=== PATIENT | female | born 1940 | race Hispanic/Latino ===

== ENCOUNTER 2018-08-15 08:46 | Outpatient (CLI) | payer MEDICARE | END 2018-08-15 08:47 | disposition home or self-care (01) | LOC: RAD 08:46 | DX: M54.16 Radiculopathy, lumbar region (principal) ==

== ENCOUNTER 2018-08-27 11:06 | Day surgery (SDC) | payer MEDICARE ==
[2018-08-25 07:35] VITALS: BMI 31.3
[2018-08-27 12:45] LABS: BASO # 0.03 K/mm3 (0.0-2.0); BASO % 0.3 % (0.0-3.0); EOS # 0.3 (0.0-0.7); EOS % 2.8 % (1.5-5.0); GRAN # 5.33 (1.4-6.5); HEMOGLOBIN 11.3 g/dL (12.0-16.0); LYMPH # 2.9 (1.2-3.4); LYMPH % 32.1 % (22.0-35.0); MEAN CORPUSCULAR HEMOGLOBIN 29.5 pg (25.0-35.0); MEAN CORPUSCULAR HGB CONC 33.5 g/dl (31.0-37.0); MEAN PLATELET VOLUME 10.7 fl (7.0-11.0); MONO # 0.5 (0.1-0.6); MONO % 5.8 % (1.0-6.0); RBC 3.83 10^6/uL (3.5-6.1); RED CELL DISTRIBUTION WIDTH 13.6 % (11.5-14.5)
[2018-08-27 12:54] LABS: INR 1.22; PARTIAL THROMBOPLASTIN TIME 37.5 Seconds (26.9-38.3); PROTHROMBIN TIME 13.8 SECONDS (9.4-12.5)
[2018-08-27 12:55] LABS: BLOOD UREA NITROGEN 23 mg/dL (7-21); CALCIUM 9.8 mg/dL (8.4-10.5); GFR NON-AFRICAN AMERICAN > 60
[2018-08-27] MEDS ORDERED: Midazolam 2 MG/2 ML VIAL ONE (13:32)
[2018-08-27] MEDS ORDERED: Midazolam 2 MG/2 ML VIAL IVP ONE (14:15)
[2018-08-27] MEDS ORDERED: Oxycodone/Acetaminophen 5/325 mg Tab PO PRN (14:23)
[2018-08-27] MEDS ORDERED: Sodium Chloride 0.45% 1,000 ML IV SCH (14:30)
[2018-08-27 15:32] VITALS: BP 124/46; PULSE 72; RESP 16; TEMP 97.5; O2SAT 96
--- NOTE | 2018-08-27 19:03 | CT ---
PROCEDURE: CT guided L2 biopsy. HISTORY: L2 mass noted on MRI. Evaluate for malignancy PHYSICIAN(S): Reginald Mahoney MD. TECHNIQUE: The relative risks and indications of the procedure were explained to the patient and consent obtained. The patient was placed prone on the CT scanner and preliminary images through the lumbar spine obtained. Conscious sedation and monitoring were provided throughout the procedure by a nurse. Degenerative changes are noted lumbar spine. Involving the anterior inferior aspect of L2, there is an osteophyte with soft tissue changes. This area was targeted for biopsy.. A right posterior paraspinal approach was selected and the area prepped and draped in the usual sterile fashion. 1% Xylocaine was used to anesthetize the skin and soft tissues. A 17-gauge guiding needle was advanced into the 2 cm osteophyte soft tissue changes involving the anterior and inferior aspect of the L2 vertebral body on the right. Its position was confirmed with CT. Using coaxial technique, multiple core biopsies were obtained. The postprocedure images show no evidence of significant hemorrhage. IMPRESSION: 1. CT-guided L2 biopsy as described above.
== END 2018-08-27 16:25 | disposition home or self-care (01) ==
LOC: SDS 11:06
PROVIDERS: ATTEND Radiology Vascular & Interventional Radiology
DX: M51.36 Other intervertebral disc degeneration, lumbar region (principal); I10 Essential (primary) hypertension; E11.9 Type 2 diabetes mellitus without complications; Z79.4 Long term (current) use of insulin
CPT/HCPCS: 20225; 36415; 77012; 80048; 85025; 85610; 85730; 88305; J2250; J2405; J3010; J7030

== ENCOUNTER 2018-12-05 15:31 | Emergency (ER) | payer MEDICARE ==
[2018-12-05 15:45] VITALS: BMI 33.5
[2018-12-05 15:56] VITALS: RESP 18
--- NOTE | 2018-12-05 16:20 | ED PDOC ---
Arrival/HPI - General Chief Complaint: Chest Pain Historian: Patient - History of Present Illness Narrative History of Present Illness (Text): 12/05/18 16:20 A 78 year old female who presents to the ED complaining of a gradual onset of lower chest and upper back pain that comes and goes. Patient reports associated chills but denies pain when taking deep breaths, nausea and abdominal pain. Patient notes pain is worse with specific movements but denies any injuries. Time/Duration: Other (Last night) Symptom Onset: Gradual Symptom Course: Unchanged Activities at Onset: Light Context: Home Past Medical History - Provider Review Nursing Documentation Reviewed: Yes - Cardiac Hx Pacemaker: No - Neurological Hx Paralysis: No - Endocrine/Metabolic Hx Diabetes Mellitus Type 1: Yes - Hematological/Oncological Hx Blood Transfusions: No - Musculoskeletal/Rheumatological Hx Musculoskeletal Disorders: Yes Hx Arthritis: Yes - Psychiatric Hx Emotional Abuse: No Hx Physical Abuse: No Hx Substance Use: No - Surgical History Other/Comment: Rt knee sx - Anesthesia Hx Anesthesia Reactions: No Hx Malignant Hyperthermia: No - Suicidal Assessment Feels Threatened In Home Enviroment: No Family/Social History - Physician Review Nursing Documentation Reviewed: Yes Family/Social History: Unknown Family HX Smoking Status: Never Smoked Hx Alcohol Use: No Hx Substance Use: No Allergies/Home Meds Allergies/Adverse Reactions: Allergies No Known Allergies Allergy (Verified 12/05/18 15:44) Home Medications: Home Meds Medication Instructions Recorded Confirmed MetFORMIN [glucoPHAGE] 1,000 mg PO BID 12/12/15 08/27/18 Simvastatin 20 mg PO DAILY 12/12/15 08/27/18 Aspirin [Ecotrin] 81 mg PO DAILY 08/25/18 08/27/18 Calcium Carbonate/Vitamin D3 1 each PO DAILY 08/25/18 08/27/18 [Caltrate 600 + D Soft Chew Tab] Cholecalciferol [Vitamin D 1000 IU] 1,000 iu PO DAILY 08/25/18 08/27/18 Insulin Lispro Protamin/Lispro 28 unit SQ BID 08/25/18 08/27/18 [Humalog Mix 75-25 Kwikpen] Losartan [Cozaar] 25 mg PO DAILY 08/25/18 08/27/18 Review of Systems - Physician Review All systems were reviewed & negative as marked: Yes - Review of Systems Constitutional: absent: Fatigue, Fevers Eyes: absent: Vision Changes ENT: absent: Hearing Changes Respiratory: absent: Cough Cardiovascular: Chest Pain Gastrointestinal: absent: Abdominal Pain, Nausea Genitourinary Female: absent: Dysuria Musculoskeletal: Back Pain Skin: absent: Rash Neurological: absent: Headache Endocrine: absent: Diaphoresis Hemo/Lymphatic: absent: Adenopathy Psychiatric: absent: Anxiety, Depression Physical Exam - Physical Exam Narrative Physical Exam (Text): 12/05/18 16:25 Head: Atraumatic. Normocephalic. Eyes: PERRL. EOMI. Conjunctivae are not pale. Sclera anicteric. ENT: Mucous membranes are moist and intact. Oropharynx is clear and symmetric. Neck: Supple. Full ROM. No JVD. No lymphadenopathy. No meningeal signs. Cardiovascular: Regular rate. Regular rhythm. Systolic murmur noted. Distal pulses are 2+ and symmetric. Pulmonary/Chest: No evidence of respiratory distress. Clear to auscultation bilaterally. No wheezing, rales or rhonchi. Palpable lower chest wall discomfort with no rash or edema. Abdominal: Soft and non-distended. There is moderate tenderness on palpation of the epigastric region and right upper quadrant. No rebound, guarding, or rigidity. No organomegaly. Negative Murhpy's sign. Rectal: no gross bleeding Back: No erythema or rash. Right paraspinal tenderness noted. Extremities: No edema. No cyanosis. No clubbing. Full range of motion in all extremities. No calf tenderness. Skin: Skin is warm and dry. No petechiae. No purpura. Neurological: Alert, awake, and oriented to person, place, time, and situation. Normal speech. No focal weakness. NO facial droop. Motor and sensory exam are intact. Psychiatric: Good eye contact. Normal interaction, affect, and behavior. Vital Signs Reviewed: Yes Vital Signs Temp Pulse Resp BP Pulse Ox 12/05/18 15:32 97.9 F 88 18 145/62 98 Temperature: Afebrile Blood Pressure: Normal Pulse: Regular Respiratory Rate: Normal Appearance: Positive for: Uncomfortable Pain Distress: Mild Mental Status: Positive for: Alert and Oriented X 3 Medical Decision Making ED Course and Treatment: 12/05/18 16:26 Impression: A 78 year old female who presents to the ED for lower chest pain and upper back pain. Differential Diagnosis included but are not limited to: cad, mi, unstable angina, gastritis, cholecystitis, sepsis, uti, pyelnoneprhitis Plan: -- EKG -- Labs -- Chest X-Ray -- Pepcid -- Blood Culture -- Urine Culture -- Urinalysis -- Abdomen Ultrasound -- Reassess and disposition Progress Notes: Patient complains of chest pain, not exertional, no associated shortness of breath. On exam, there is palpable pain, moderate. She later admits that she has had this pain intermittently for several weeks, but not associated with exertion or meals. Patient with persistent palpable abdominal pain. I have reviewed abnormal ult rasound results with patient in laymen's terms. Given persistent pain I stressed limitations of labs and radiographic studies and need to exclude surgical or infectious process. UTI noted. Imaging studies reviewed multiple times in laymen's terms. She is hyperglycemic, iv fluids given. She is alert and oriented. Current exam not consistent with DKA. EKG reviewed with patient. Have stressed need for serial exams, admission for evaluation of chest pain, possible cholecystitis, UTI. Stressed need for admission for possible GI and surgical consultation, as well as cardiac monitoring. Patient PMD is Dr. Koroma, and patient admitted to hospitalist service after discussing with Dr. Gaspar at 1825. Treatment plan reviewed with patient she is in agreement for admission. I have noted risk of possible cholecystitis, cardiac disease, hyperglycemia and need for treatment and serial exams. CT abdomen/pelvis ordered, pending at 1840. - Scribe Statement The provider has reviewed the documentation as recorded by the Jose Miguel Gannon rani Provider Scribe Attestation: All medical record entries made by the Jose Miguel were at my direction and p ersonally dictated by me. I have reviewed the chart and agree that the record accurately reflects my personal performance of the history, physical exam, medical decision making, and the department course for this patient. I have also personally directed, reviewed, and agree with the discharge instructions and disposition. Disposition/Present on Arrival - Present on Arrival Any Indicators Present on Arrival: No History of DVT/PE: No History of Uncontrolled Diabetes: No Urinary Catheter: No History of Decub. Ulcer: No History Surgical Site Infection Following: None - Disposition Have Diagnosis and Disposition been Completed?: Yes Diagnosis: Chest pain, Hyperglycemia, UTI (urinary tract infection), Abdominal pain, Cholelithiasis Disposition: AGAINST MEDICAL ADVICE Disposition Time: 18:00 Patient Plan: Admission, Telemetry Condition: SERIOUS
[2018-12-05 16:31] LABS: BASO # 0.03 K/mm3 (0.0-2.0); BASO % 0.3 % (0.0-3.0); EOS # 0.2 (0.0-0.7); EOS % 1.7 % (1.5-5.0); LYMPH # 3.2 (1.2-3.4); MEAN CELL VOLUME 88.5 fl (80.0-105.0); MEAN CORPUSCULAR HEMOGLOBIN 29.5 pg (25.0-35.0); MEAN CORPUSCULAR HGB CONC 33.3 g/dl (31.0-37.0); MEAN PLATELET VOLUME 11.3 fl (7.0-11.0); MONO # 0.7 (0.1-0.6); MONO % 6.6 % (1.0-6.0); RBC 3.73 10^6/uL (3.5-6.1); RED CELL DISTRIBUTION WIDTH 13.5 % (11.5-14.5); WHITE BLOOD COUNT 10.4 10^3/uL (4.5-11.0)
[2018-12-05 16:32] LABS: URINE APPEARANCE SLIGHT-CLOUDY (CLEAR); URINE BILIRUBIN NEGATIVE (NEGATIVE); URINE BLOOD SMALL (NEGATIVE); URINE COLOR YELLOW (YELLOW); URINE GLUCOSE (UA) >=1000 mg/dL (NEGATIVE); URINE LEUKOCYTE ESTERASE MODERATE Leu/uL (NEGATIVE); URINE PROTEIN 30 mg/dL (<30 mg/dL); URINE UROBILINOGEN 0.2 E.U./dL (<1 E.U./dL)
[2018-12-05 16:39] LABS: URINE EPITHELIAL CELLS 0 - 2 /hpf (0-5); URINE WBC TNTC /hpf (0-6)
[2018-12-05 16:40] LABS: URINE BACTERIA MANY /hpf
[2018-12-05 16:47] LABS: ALB/GLOB RATIO 1.2 (1.1-1.8); ALBUMIN 3.9 g/dL (3.0-4.8); ALT/SGPT 15 U/L (7-56); AMYLASE 46 U/L (35-125); AST/SGOT 24 U/L (14-36); BLOOD UREA NITROGEN 28 mg/dL (7-21); CALCIUM 9.4 mg/dL (8.4-10.5); GFR NON-AFRICAN AMERICAN > 60; LIPASE 66 U/L (23-300)
[2018-12-05 16:53] LABS: TROPONIN I < 0.01 ng/mL
[2018-12-05] MEDS ORDERED: cefTRIAXone 1 gm 1 GM/100 ML BAG IVPB STA (16:53)
[2018-12-05] MEDS ORDERED: Sodium Chloride 0.9% 1,000 ML IV STA (16:53)
[2018-12-05 17:14] LABS: INR 1.26; PARTIAL THROMBOPLASTIN TIME 33.7 Seconds (26.9-38.3)
[2018-12-05 17:32] LABS: VENOUS BLOOD GAS BASE EXCESS -2.2 mmol/L (0.0-2.0); VENOUS BLOOD GAS PO2 47 mm/Hg (30-55); VENOUS BLOOD PH 7.34 (7.32-7.43)
--- NOTE | 2018-12-05 17:53 | US ---
Date of service: 12/05/2018 HISTORY: upper abdominal pain COMPARISON: None. TECHNIQUE: Sonographic evaluation of the abdomen. FINDINGS: LIVER: Measures 16.0 cm. Patent portal and hepatic venous systems. Portal venous flow: Hepatopetal. echogenicity of the liver parenchyma. No mass. No intrahepatic bile duct dilatation. GALLBLADDER: Cholelithiasis. Negative study for gallbladder wall thickening, pericholecystic fluid, sonographic Smith's sign. COMMON BILE DUCT: Measures 6.5 mm. No stones. No dilatation. PANCREAS: Unremarkable as visualized. No mass. No ductal dilatation. RIGHT KIDNEY: Measures 4.6 x 9.5cm. Normal echogenicity. No calculus, mass, or hydronephrosis. LEFT KIDNEY: Measures 6.5 x 10.9cm. Normal echogenicity. No calculus, mass, or hydronephrosis. SPLEEN: Normal in size and contour. No mass. AORTA: No aneurysmal dilatation. IVC: Unremarkable. OTHER FINDINGS: None. IMPRESSION: Cholelithiasis. No sonographic evidence of acute cholecystitis.
--- NOTE | 2018-12-05 19:01 | RAD ---
Date of service: 12/05/2018 HISTORY: Heaviness in chest, cough and chest pain COMPARISON: 09/17/2016 FINDINGS: LUNGS: No active pulmonary disease. PLEURA: No significant pleural effusion identified, no pneumothorax apparent. CARDIOVASCULAR: Atherosclerotic calcifications identified primarily aortic arch. No radiographic findings to suggest acute or significant cardiovascular disease. OSSEOUS STRUCTURES: No significant abnormalities. VISUALIZED UPPER ABDOMEN: Normal. OTHER FINDINGS: None. IMPRESSION: No active disease. No significant interval change compared to the prior examination(s).
--- NOTE | 2018-12-05 19:09 | CT ---
Date of service: 12/05/2018 PROCEDURE: CT Abdomen and Pelvis without intravenous contrast HISTORY: flank pain, urinary symptoms COMPARISON: December 05, 2018. Abdominal ultrasound 08/15/2018 CT abdomen and pelvis TECHNIQUE: Unenhanced. Neither IV nor oral contrast administered Radiation dose: Total exam DLP = 687.10 mGy-cm. This CT exam was performed using one or more of the following dose reduction techniques: Automated exposure control, adjustment of the mA and/or kV according to patient size, and/or use of iterative reconstruction technique. FINDINGS: LOWER THORAX: Unremarkable. LIVER: Unremarkable. No gross lesion or ductal dilatation. GALLBLADDER AND BILE DUCTS: Unremarkable. Gallstones identified on concurrent abdominal ultrasound are not readily apparent. PANCREAS: Unremarkable. No gross lesion or ductal dilatation. SPLEEN: Unremarkable. ADRENALS: Unremarkable. No mass. KIDNEYS AND URETERS: Unremarkable. No hydronephrosis. No solid mass. VASCULATURE: Unremarkable. No aortic aneurysm. Atherosclerotic calcification and mural plaque present. Findings are seen throughout the aorta which is non aneurysmal. BOWEL: Constipation without fecal impaction or obstruction. APPENDIX: No abnormalities to suggest acute appendicitis. No right lower quadrant inflammatory processes identified. PERITONEUM: Unremarkable. No free fluid. No free air. LYMPH NODES: Unremarkable. No enlarged lymph nodes. BLADDER: Unremarkable urinary bladder wall. Small punctate foci of air identified. The findings suggest recent instrumentation. No discrete urinary bladder abnormalities. REPRODUCTIVE: Unremarkable. BONES: No acute fracture. Multilevel degenerative changes lower lumbar spine and lumbosacral region. OTHER FINDINGS: None. IMPRESSION: No upper tract abnormalities. No evidence of renal calculus disease, hydronephrosis or hydroureter. Air in the urinary bladder suggests recent instrumentation. No discrete bladder wall abnormalities detected. Additional benign and/or incidental findings described above.
[2018-12-05] MEDS ORDERED: Dextrose 50% SYRINGE Inj (50 ml) IV PRN (19:33)
[2018-12-05 19:39] LABS: B-TYPE NATRIURETIC PEPTIDE 381 pg/mL (0-450)
[2018-12-05 20:22] VITALS: BP 148/75; PULSE 79; TEMP 98; O2SAT 100
--- NOTE | 2018-12-05 21:08 | CP.PCM.PCO ---
<Candie Piña - Last Filed: 12/05/18 21:04> Summary - Summary of Event Summary of Event: Patient was admitted for chest pain in the emergency department. Patient decided to sign out against medical advance after admission order, but prior to evaluation by hospitalist team. Benefits of staying in the hospital for further evaluation discussed with patient. Risks of leaving against medical advice discussed with patient. She verbalized that she understands the risks and benefits but would still like to leave against medical advice. She states she will call her PMD, Dr. Peña and Dr. Hernadez on Saturday. Patient was instructed to return to emergency department if symptoms recur. Case seen, discussed and reviewed with attending. Osman Piña [id number] <Bianca Wilkinson - Last Filed: 12/06/18 06:38> Attending/Attestation - Attestation I have personally seen and examined this patient.: No I have fully participated in the care of the patient.: No I have reviewed all pertinent clinical information: No
[2018-12-05] MEDS ORDERED: Insulin Lispro (humaLOG) MEDIUM Coverage SC SCH (22:00)
[2018-12-05] MEDS ORDERED: Insulin Detemir 100 units/ml Vial (Levemir) SC SCH (22:00)
--- NOTE | 2018-12-05 22:06 | CARD ---
APPROVED REPORT Date of service: 12/05/2018 EKG Measurement Heart [id number] <Conclusion> Normal sinus rhythm Posible Inferior infarct, age undetermined Anteroseptal infarct, age undetermined Abnormal ECG
[2018-12-06] MEDS ORDERED: Pantoprazole 40 mg EC Tab PO SCH (07:30)
[2018-12-06] MEDS ORDERED: cefTRIAXone 1 gm 1 GM/100 ML BAG IVPB SCH (10:00)
[2018-12-06] MEDS ORDERED: Cholecalciferol 1,000 INTLU TAB PO SCH (10:00)
[2018-12-06] MEDS ORDERED: Enoxaparin 40 mg Syringe SC SCH (10:00)
== END 2018-12-05 21:05 | disposition left against medical advice (07) ==
LOC: ED 15:31 → UNDOADMIN 18:47 → ERH 18:47 → UNDODISIN 21:27
DX: N39.0 Urinary tract infection, site not specified (principal); K80.20 Calculus of gallbladder without cholecystitis without obstruction; E10.65 Type 1 diabetes mellitus with hyperglycemia; R07.9 Chest pain, unspecified; R10.9 Unspecified abdominal pain
CPT/HCPCS: 71045; 74176; 76700; 80053; 81001; 82150; 82550; 82803; 82948; 83615; 83690; 83880; 84484; 85025; 85610; 85730; 87040; 87086; 87181; 93005; 96365; 96375; 99284; J0696; J7030